=== PATIENT | female | born 1970 | race Caucasian/White ===

== ENCOUNTER 2017-02-27 10:23 | Emergency (ER) | payer BC, OTHER ==
[~2017-02-27] VITALS: Ht 165.1 cm; Wt 97.5 kg
[2017-02-27 11:23] LABS: Basophils # (auto) 0 uL; Basophils % (auto) 0.3 % (0.0-2.0); Eosinophils # (auto) 0.1 uL; Eosinophils % (auto) 1.2 % (0.0-7.0); Hematocrit 48.8 % (36.0-46.0); Hemoglobin 16.7 g/dL (12.2-16.2); Lymphocytes % (auto) 21.7 % (10.0-50.0); Mean Corpuscular Hemoglobin 29.5 pg (28.0-32.0); Mean Corpuscular Hgb Conc. 34.3 g/dL (32.0-36.0); Mean Corpuscular Volume 86.2 fL (80.0-100.0); Mean Platelet Volume 9.5 fL (7.4-10.4); Monocytes # (auto) 0.7 uL; Monocytes % (auto) 7.4 % (0.0-12.0); Neutrophils # (auto) 6.4 uL; Neutrophils % (auto) 69.4 % (37.0-80.0); Platelet Count (auto) 255 10^3/uL (140-450); Red Cell Distribution Width 14.2 % (11.6-16.0); White Blood Cell 9.3 10^3/uL (4.4-10.8)
[2017-02-27 11:52] LABS: Albumin 3.7 g/dL (3.4-5.0); BUN/Creatinine Ratio 16.2; Bilirubin, Total 0.3 mg/dL (0.2-1.0); Calcium 8.7 mg/dL (8.5-10.1); Potassium 4.2 mmol/L (3.5-5.1); Total Protein 7.3 g/dL (6.4-8.2)
[2017-02-27] MEDS ORDERED: SODIUM CHLORIDE 0.9% 1,000 ML IV ONE (15:30)
[2017-02-27] MEDS ORDERED: LORazepam 2MG/ML-1ML VIAL IV ONE (15:30)
[2017-02-27 18:01] LABS: Urine Bilirubin Negative (Negative); Urine Blood TRACE /uL (Negative); Urine Color Yellow (Yellow); Urine Glucose 4+ mg/dL (Normal); Urine Ketone Negative (Negative); Urine Nitrite Negative (Negative); Urine RBC 9 /hpf (0 - 4); Urine Squamous Epithelial Cell FEW /hpf (<5); Urine Urobilinogen Normal (Negative)
[2017-02-27 19:05] VITALS: BP 121/38
== END 2017-02-27 20:48 | disposition home or self-care (01) ==
LOC: ER 10:23
DX: N39.0 Urinary tract infection, site not specified (principal); F41.9 Anxiety disorder, unspecified; F17.210 Nicotine dependence, cigarettes, uncomplicated; F32.9 Major depressive disorder, single episode, unspecified; H53.149 Visual discomfort, unspecified; Z88.1 Allergy status to other antibiotic agents
CPT/HCPCS: 36415; 70450; 80053; 81001; 85025; 96361; 96374; 99285; J2060; J7030

== ENCOUNTER 2020-12-01 14:48 | Emergency (ER) | payer BC, OTHER ==
[~2020-12-01] VITALS: Ht 165.1 cm; Wt 106.6 kg
[2020-12-01 15:14] VITALS: BP 144/99
[2020-12-01] MEDS ORDERED: KETOROLAC TROMETH 60MG/2ML VIAL IM ONE (15:30)
== END 2020-12-01 17:01 | disposition home or self-care (01) ==
LOC: ER 14:48
DX: S16.1XXA Strain of muscle, fascia and tendon at neck level, initial encounter (principal); S29.012A Strain of muscle and tendon of back wall of thorax, initial encounter; S83.502A Sprain of unspecified cruciate ligament of left knee, initial encounter; V49.9XXA Car occupant (driver) (passenger) injured in unspecified traffic accident, initial encounter; Y93.89 Activity, other specified; Y92.89 Other specified places as the place of occurrence of the external cause; Y99.8 Other external cause status
CPT/HCPCS: 72040; 72070; 96372; 99284; J1885

== ENCOUNTER → 2025-01-18 | Outpatient (CLI) | payer BC ==
--- NOTE | 2025-01-18 16:10 | DVH ---
EXAM: NM NM BONE 3 PHASE History: PAINFUL HARDWARE Comparison Study: None TECHNIQUE: Immediately after the radiopharmaceutical, flow images of the were acquired, followed by blood pool images of the bilateral knees . Then, approximately 3 hours later, additional im ages of the were acquired. Anterior and posterior whole body images were also acquired. march 2023, revisioon may 22, CONTRAST MEDIA AND RADIOPHARMACEUTICALS: FINDINGS: Flow images demonstrate a normal distribution . Blood pool images demonstrate no areas of hyperemia. Delayed images demonstrate photopenia in the region of the left knee with periprosthetic uptake. Foc al radiotracer uptake along the right medial knee. IMPRESSION: 1. No definite evidence to suggest a prosthetic infection or hardware loosening. If there is high cli nical suspicion for an infectious etiology, recommend a nuclear medicine WBC scan for further evaluat ion. 2. Increased radiotracer uptake on the delayed images in the left knee are within normal limits given history of revision in April 2024. 3. Mild radiotracer uptake in the right knee on the delayed images, favored degenerative.
== END | disposition home or self-care (01) ==
LOC: XYW 10:16
PROVIDERS: ATTEND Orthopaedic Surgery Adult Reconstructive Orthopaedic Surgery
DX: T84.84XA Pain due to internal orthopedic prosthetic devices, implants and grafts, initial encounter (principal); M17.11 Unilateral primary osteoarthritis, right knee; X58.XXXA Exposure to other specified factors, initial encounter; Y93.89 Activity, other specified; Y92.89 Other specified places as the place of occurrence of the external cause; Y99.8 Other external cause status
CPT/HCPCS: 78315; A9503